=== PATIENT | male | born 2000 | race Asian ===

== ENCOUNTER 2024-03-27 16:19 | Inpatient (IN) | payer MEDICAID ==
[~2024-03-27] VITALS: Ht 180.3 cm; Wt 68.0 kg
[2024-03-27 17:16] LABS: CALCIUM, SERUM 8.6 mg/dL (8.5-10.1); POTASSIUM 3.6 mmol/L (3.5-5.1)
[2024-03-27] MEDS: IV NS 0.9% 1,000 ML BAG IV ONE ×2 (17:21→19:04)
[2024-03-27 17:22] LABS: ALBUMIN 3.4 g/dL (3.4-5.0); BILIRUBIN,DIRECT 0.4 mg/dL (0.0-0.2); BILIRUBIN,TOTAL 1.3 mg/dL (0.2-1.0); TOTAL PROTEIN, SERUM 6.9 g/dL (6.4-8.2)
[2024-03-27] MEDS ORDERED: IV NS 0.9% 250 ML IV ONE (17:46)
[2024-03-27] MEDS ORDERED: IOHEXOL-300 100 ML VIAL IV ONE (17:46)
[2024-03-27 17:53] LABS: BASOPHILS % (AUTO) 0.2 % (0.0-2.0); EOSINOPHILS % (AUTO) 0.1 % (0.0-6.0); HEMATOCRIT 37 % (39-51); HEMOGLOBIN 12.5 g/dL (13.5-17.5); LYMPHOCYTES # (AUTO) 0.7 K/uL (0.8-4.8); LYMPHOCYTES % (AUTO) 7.3 % (20.0-44.0); MEAN CORPUSCULAR HEMOGLOBIN 32 PG (26.0-33.0); MEAN CORPUSCULAR HGB CONC 34 g/dl (31.0-36.0); MEAN CORPUSCULAR VOLUME 95 fL (80-96); MONOCYTES # (AUTO) 1.5 K/uL (0.1-1.30); MONOCYTES % (AUTO) 14.8 % (2.0-12.0); NEUTROPHILS # (AUTO) 7.6 K/uL (1.8-8.9); NEUTROPHILS % (AUTO) 77.6 % (43.0-81.0); PLATELET COUNT (AUTO) 191 K/uL (150-450); RED BLOOD CELL COUNT(AUTO) 3.93 MIL/uL (4.5-6.0); RED CELL DISTRIBUTION WIDTH 14.8 % (11.5-15.0); WHITE BLOOD COUNT (AUTO) 9.8 K/uL (4.3-11.0)
[2024-03-27] MEDS ORDERED: ONDANSETRON HCL/PF 4 MG/2 ML VIAL IVP PRN (21:30)
[2024-03-27] MEDS ORDERED: MORPHINE SULFATE INJ 2 MG/ML DISP.SYRIN IV PRN (21:30)
[2024-03-27] MEDS ORDERED: Z GUARD REMEDY 4 OZ OINT TP PRN (21:30)
[2024-03-27 23:05] VITALS: BP 129/74; TEMP 98.1; O2SAT 100
[2024-03-27] MEDS: IV NS 0.9% 1,000 ML IV PRN (23:17)
[2024-03-27 23:54] VITALS: BP 129/74; TEMP 98.1; O2SAT 100
[2024-03-28 06:55] LABS: BASOPHILS % (AUTO) 0.4 % (0.0-2.0); EOSINOPHILS # (AUTO) 0.2 K/uL (0.0-0.7); EOSINOPHILS % (AUTO) 2.1 % (0.0-6.0); HEMATOCRIT 35 % (39-51); LYMPHOCYTES # (AUTO) 1.6 K/uL (0.8-4.8); LYMPHOCYTES % (AUTO) 21.1 % (20.0-44.0); MEAN CORPUSCULAR HEMOGLOBIN 32 PG (26.0-33.0); MEAN CORPUSCULAR HGB CONC 34 g/dl (31.0-36.0); MEAN CORPUSCULAR VOLUME 95 fL (80-96); MONOCYTES # (AUTO) 1.2 K/uL (0.1-1.30); MONOCYTES % (AUTO) 16.7 % (2.0-12.0); NEUTROPHILS # (AUTO) 4.4 K/uL (1.8-8.9); NEUTROPHILS % (AUTO) 59.7 % (43.0-81.0); PLATELET COUNT (AUTO) 181 K/uL (150-450); RED BLOOD CELL COUNT(AUTO) 3.73 MIL/uL (4.5-6.0); RED CELL DISTRIBUTION WIDTH 14.7 % (11.5-15.0); WHITE BLOOD COUNT (AUTO) 7.4 K/uL (4.3-11.0)
[2024-03-28 07:17] LABS: BILIRUBIN,DIRECT 0.2 mg/dL (0.0-0.2); CALCIUM, SERUM 8.1 mg/dL (8.5-10.1); CREATININE 0.7 mg/dL (0.6-1.3); MAGNESIUM 2.5 mg/dL (1.8-2.4); PHOSPHORUS 4.4 mg/dL (2.5-4.9); POTASSIUM 4.5 mmol/L (3.5-5.1); TOTAL PROTEIN, SERUM 6.1 g/dL (6.4-8.2)
[2024-03-28] MEDS: PANTOPRAZOLE 40 MG VIAL IV SCH (08:36)
[2024-03-28 08:39] VITALS: BP 113/74; TEMP 98.2; O2SAT 100
[2024-03-28 16:13] VITALS: BP 130/80; TEMP 99; O2SAT 98
[2024-03-29] MEDS ORDERED: NITROGLYCERIN 30 GM TUBE TP PRN (07:00)
[2024-03-29] MEDS: NITROGLYCERIN PACKET 1 GM PACKET TOP SCH (08:00)
[2024-03-29] MEDS ORDERED: PANTOPRAZOLE 40 MG TABLET.DR PO SCH (09:00)
[2024-03-29] MEDS ORDERED: NALO4SPR BNOSTRILS (09:33)
== END 2024-03-29 08:00 | disposition left against medical advice (07) | DRG 254 ==
LOC: ER 16:23 → MED 22:30
PROVIDERS: ADMIT Nurse Practitioner Family; ATTEND Nurse Practitioner Acute Care
DX: S39.91XA Unspecified injury of abdomen, initial encounter (principal); K85.20 Alcohol induced acute pancreatitis without necrosis or infection; D63.8 Anemia in other chronic diseases classified elsewhere; E87.1 Hypo-osmolality and hyponatremia; K86.1 Other chronic pancreatitis; Y00.XXXA Assault by blunt object, initial encounter; Y92.9 Unspecified place or not applicable; Y92.521 Bus station as the place of occurrence of the external cause; Z53.29 Procedure and treatment not carried out because of patient's decision for other reasons; F12.90 Cannabis use, unspecified, uncomplicated; R74.01 Elevation of levels of liver transaminase levels; R79.89 Other specified abnormal findings of blood chemistry
CPT/HCPCS: 36415; 70450-TC; 80048-TC; 80076-TC; 82150-TC; 83690-TC; 83735-TC; 84100-TC; 84484-TC; 85025-TC; 98960; A4223; G0378; J2470; J7030; J7050; Q9967

== ENCOUNTER 2024-03-29 09:17 | Emergency (ER) | payer MEDICAID, OTHER ==
[~2024-03-29] VITALS: Ht 180.3 cm; Wt 63.5 kg
[2024-03-29 09:25] VITALS: BP 144/79; TEMP 98.6; O2SAT 95
[2024-03-29] MEDS ORDERED: NALO4SPR BNOSTRILS (09:33)
== END 2024-03-29 09:35 | disposition home or self-care (01) ==
LOC: ER 09:23
DX: F19.10 Other psychoactive substance abuse, uncomplicated (principal); F15.10 Other stimulant abuse, uncomplicated; Z87.19 Personal history of other diseases of the digestive system; Z60.2 Problems related to living alone; Z59.00 Homelessness unspecified